=== PATIENT | female | born 1930 | race Caucasian/White ===

== ENCOUNTER 2019-04-13 10:24 | Inpatient (IN) | payer OTHER ==
[2019-04-13] MEDS ORDERED: morphine CARPU-JECT 4 MG/1 ML DISP.SYRIN IVPUSH ONE ×2 (11:15→13:36)
[2019-04-13] MEDS ORDERED: morphine SULFATE 4 MG/ML VIAL ONE (11:31)
--- NOTE | 2019-04-13 12:06 | PDOC ---
Documentation entered by Luke Peterson SCRIBE, acting as scribe for Flakito Askew MD. Flakito Askew MD: This documentation has been prepared by the Nicholas staley Nirvannie, SCRIBE, under my direction and personally reviewed by me in its entirety. I confirm that the documentation accurately reflects all work, treatment, procedures, and medical decision making performed by me. History of Present Illness - General Chief Complaint: Injury Stated Complaint: FALL Time Seen by Provider: 04/13/19 11:12 History Source: Patient, Family Exam Limitations: No Limitations - History of Present Illness Initial Comments: 04/13/19 11:34 The patient is an 88 year old female, with a significant past medical history of depression and hyperlipidemia, who presents to the emergency department s/p trip and fall. As per family at bedside, she was walking when she tripped over a bag on the floor, subsequently falling onto her left side hitting her left shoulder and left side of her head. She endorses significant pain to the left elbow with both passive and active movement. Denies ELIZONDO/N/V. Endorses some neck pain. She denies any LOC, lightheadedness, dizziness, nausea, or vomiting. She denies recent palpitations, chest pain, or shortness of breath. She denies recent dysuria, frequency, urgency or hematuria. Allergies: [facility] Primary Care Physician: Dr. Alyssa Cunningham Past History - Past Medical History Allergies/Adverse Reactions: Allergies Allergy/AdvReac Type Severity Reaction Status Date / Time No Known Allergies Allergy Verified 04/13/19 10:35 Home Medications: Ambulatory Orders Omeprazole [Prilosec] 40 mg PO DAILY 01/26/15 Quetiapine Fumarate [Seroquel -] 50 mg PO HS 01/26/15 Oxycodone HCl 5 mg PO TID PRN #15 tablet MDD 3 tabs 04/13/19 COPD: No Hypercholesterolemia: Yes Psychiatric Problems: Yes (DEPRESSION) - Psycho Social/Smoking Cessation Hx Smoking History: Never smoked Have you smoked in the past 12 months: No Information on smoking cessation initiated: No Hx Alcohol Use: No Drug/Substance Use Hx: No Substance Use Type: None Review of Systems - Review of Systems Able to Perform ROS?: Yes Comments:: 04/13/19 11:34 GENERAL/CONSTITUTIONAL: No fever or chills. No weakness. HEAD, EYES, EARS, NOSE AND THROAT: + pain and swelling above left eyebrow. No change in vision. No ear pain or discharge. No sore throat. CARDIOVASCULAR: No chest pain, no shortness of breath, no loss of consciousness RESPIRATORY: No cough, wheezing, or hemoptysis. GASTROINTESTINAL: No nausea, vomiting, diarrhea or constipation. GENITOURINARY: No dysuria, frequency, or change in urination. MUSCULOSKELETAL: +Right shoulder pain. No neck or back pain. SKIN: No rash NEUROLOGIC: No vertigo, no change in strength/sensation. ENDOCRINE: No increased thirst. No abnormal weight change. HEMATOLOGIC/LYMPHATIC: No anemia, easy bleeding, or history of blood clots. ALLERGIC/IMMUNOLOGIC: No hives or skin allergy. All Other Systems: Reviewed and Negative *Physical Exam - Vital Signs Last Vital Signs Temp Pulse Resp BP Pulse Ox 98.5 F 66 24 H 169/88 100 04/13/19 10:35 04/13/19 10:35 04/13/19 10:35 04/13/19 10:35 04/13/19 10:35 - Physical Exam Comments: 04/13/19 11:35 GENERAL: Awake, alert, and fully oriented, in no acute distress. HEAD: + abrasion to L eyebrow EYES: PERRLA, EOMI, sclera anicteric, conjunctiva clear ENT: Auricles normal inspection, hearing grossly normal, nares patent, oropharynx clear without exudates. Moist mucosa NECK: Nontender, no stepoffs, Normal ROM, supple, no lymphadenopathy, JVD, or masses LUNGS: Breath sounds equal, clear to auscultation bilaterally. No wheezes, and no crackles HEART: Regular rate and rhythm, normal S1 and S2, no murmurs, rubs or gallops ABDOMEN: Soft, nontender, normoactive bowel sounds. No guarding, no rebound. No masses EXTREMITIES: + L shoulder mild deformity, ROM limited 2/2 pain, distal pulses and sensation intact NEUROLOGICAL: Cranial nerves II through XII intact. 5/5 strength and sensation in all extremities, Normal speech, normal gait, normal cerebellar function SKIN: Warm, Dry, normal turgor, no rashes or lesions noted. Medical Decision Making - Medical Decision Making 04/13/19 12:09 88 F with L shoulder deformity and pain s/p mechanical fall. Possible fx/ dislocation. - CT head/c-spine - XR L shoulder - Pain control 04/13/19 13:08 CT head unremarkable XR shows Proximal L humerus fx, no dislocation Pt placed in sling Pending reads of CT c-spine/T-spine 04/13/19 13:30 CTs unremarkable Pt reassessed - still in severe pain after morphine and percocet Additional morphine ordered. Discussed with pt's family, who is concerned about pt's living situation. She lives in a 2 story walk up alone, will be unable to care for herself in this condition. 04/13/19 14:[address] Guerra Discharge - Discharge Information Problems reviewed: Yes Clinical Impression/Diagnosis: Fall, Head injury, Proximal humerus fracture - Admission Yes - Additional Discharge Information Prescriptions: Oxycodone HCl 5 mg PO TID PRN #15 tablet MDD 3 tabs PRN Reason: Pain - Follow up/Referral Referrals: Alyssa Cunningham MD [Primary Care Provider] - Freddie Patiño DO [Staff Physician] - - Patient Discharge Instructions Patient Printed Discharge Instructions: How to Use a Sling, DI for Closed Head Injury, DI for Humeral Fracture Additional Instructions: You have a broken arm (humeral fracture). Keep your arm in the sling at all times. You must follow up with an orthopedic surgeon within 48 hours for further evaluation and treatment. Call the number provided to make an appointment with Dr. Patiño. Take tylenol every 8 hours as needed for pain. For severe pain, take one oxycodone. Do not use more than prescribed. If you experience worsening pain, numbness or tingling in your arm, discoloration of your hand or arm, or any other concerning symptoms, return to the ER immediately. - Post Discharge Activity
[2019-04-13] MEDS ORDERED: MORPHINE SULFATE 2 MG/ML VIAL ONE (13:38)
--- NOTE | 2019-04-13 14:15 | HP ---
Admitting History and Physical - Smoking History Smoking history: Never smoked Have you smoked in the past 12 months: No - Alcohol/Substance Use Hx Alcohol Use: No Home Medications - Allergies Allergies/Adverse Reactions: Allergies Allergy/AdvReac Type Severity Reaction Status Date / Time No Known Allergies Allergy Verified 04/13/19 10:35 - Home Medications Home Medications: Ambulatory Orders Omeprazole [Prilosec] 40 mg PO DAILY 01/26/15 Quetiapine Fumarate [Seroquel -] 50 mg PO HS 01/26/15 Oxycodone HCl 5 mg PO TID PRN #15 tablet MDD 3 tabs 04/13/19 Physical Examination Vital Signs: Vital Signs Temperature 98.5 F 04/13/19 10:35 Pulse Rate 63 04/13/19 11:40 Respiratory Rate 20 04/13/19 11:40 Blood Pressure 177/56 H 04/13/19 11:40 O2 Sat by Pulse Oximetry (%) 100 04/13/19 11:40
[2019-04-13 14:25] LABS: BASO % 0.4 % (0-2.0); EOS % 0.2 % (0-4.5); LYMPH % 15.3 % (8-40); MCH 29.5 pg (25.7-33.7); MCHC 32.5 g/dl (32.0-36.0); MEAN CELL VOLUME 90.7 fl (80-96); MEAN PLT VOLUME 9.9 fl (7.5-11.1); MONO % 6.5 % (3.8-10.2); NEUT % 77.6 % (42.8-82.8); PLATELET COUNT 157 K/MM3 (134-434); RBC 4.08 M/mm3 (3.60-5.2); WHITE BLOOD COUNT 7.5 K/mm3 (4.0-10.0)
[2019-04-13 14:51] LABS: ALBUMIN 3.6 g/dl (3.4-5.0); BILIRUBIN,TOTAL 0.4 mg/dL (0.2-1); BLOOD UREA NITROGEN 12.3 mg/dL (7-18); CALCIUM 8.7 mg/dL (8.5-10.1); CREATININE 0.6 mg/dL (0.55-1.3); TOT PROT 6.6 g/dl (6.4-8.2)
[2019-04-13 17:08] VITALS: BMI 21.1
[2019-04-13] MEDS ORDERED: ACETAMINOPHEN 1000 MG/100 ML VIAL (NON FORMULARY) IVPB ONE (17:43)
[2019-04-13] MEDS ORDERED: LIDOCAINE 5% TOPICAL PATCH TP ONE (17:44)
--- NOTE | 2019-04-13 19:48 | CONSULT ---
Consult - text type - Consultation Consultation Note: ORTHOPEDIC SURGERY CONSULTATION NOTE Department of Orthopedic Surgery HISTORY OF PRESENT ILLNESS Christy Noland is an 88 year old female who was admitted to [facility] today after a mechanical fall at home. The orthopedic service was consulted for a left proximal humerus fracture. The injury occurred today. The patient notes pain to the left shoulder. Denies any other injuries. Denies numbness, tingling or other constitutional complaints. Denies tobacco use, drug use, alcohol abuse. The patient lives with family and uses no assistive devices at baseline. Active Problems Problem Status Category Onset Fall Acute Medical Head injury Acute Medical Proximal humerus fracture Acute Medical Social History Smoking history Never smoked Hx Alcohol Use No Allergies Allergy/AdvReac Type Severity Reaction Status Date / Time No Known Allergies Allergy Verified 04/13/19 10:35 Active Medications Generic Name Dose Route Start Last Admin Trade Name Freq PRN Reason Stop Dose Admin Amlodipine Besylate 5 mg 04/14/19 10:00 Norvasc - PO DAILY [facility] Miscellaneous 1 each 04/13/19 22:00 Lidoderm Patch Removal MC [id number] [facility] Vital Signs (last) Temp Pulse Resp BP Pulse Ox 97.8 F 72 20 130/72 97 04/13/19 16:58 04/13/19 16:58 04/13/19 17:14 04/13/19 16:58 04/13/19 17:14 Intake and Output 04/11/19 04/12/19 04/13/19 23:59 23:59 23:59 Other: Voiding Method Toilet Weight 108 lb Height 5 ft Body Mass Index (BMI) 21.1 Weight Measurement Method Built in [facility] Weight Measurement Method Est/Stated by Patient Laboratory 04/13/19 14:05 04/13/19 14:05 FAMILY HISTORY Reviewed and noncontributory. REVIEW OF SYMPTOMS A twelve-point review of systems was performed and was negative except as noted in HPI. PHYSICAL EXAM Constitutional: Alert and oriented to person, place, and time. Appears well- developed and well-nourished. No acute distress, appropriate mood and affect. Right Upper Extremity: No tenderness to palpation. Full passive and active ROM, free from pain. Left Upper Extremity: Skin warm, dry, and intact; ecchymosis of the left arm. Muscle mass equal and symmetric to contralateral side. No atrophy noted. Tender to palpation at proximal humerus; nontender throughout rest of extremity. Full passive and active ROM elbow, wrist and hand, free from pain. Joints stable with no pathologic laxity. M/R/U/MSK/AX motor intact; SILT distally; 2+ radial pulses; Cap refill brisk. Tone and reflexes normal. Right Lower Extremity: No tenderness to palpation. Full passive and active ROM, free from pain. Left Lower Extremity: No tenderness to palpation. Full passive and active ROM, free from pain. IMAGING I personally reviewed all radiographs, CT of the left shoulder. They demonstrate a minimally displaced left proximal humerus fracture involving the greater tuberosity. ASSESSMENT AND PLAN Christy Noland is an 88 year old female presenting status post mechanical fall with a left proximal humerus fracture involving the greater tuberosity. We have reviewed the imaging and clinical findings in detail, as well as their potential implications. - No surgical intervention recommended at this time. - Pain control: Transition to oral pain medications, minimize narcotic use - DVT prophylaxis - Ice/Sling - Elevate HOB, encourage oral intake - Appreciate medical management (Nutrition optimization, decubitus precautions heel/sacrum) - PT/OT; non weight bearing on fractured side All questions were answered. Thank you for involving our team in the care of this patient. Please have patient follow up in our office. The patient has a follow up appointment scheduled in my office on April at 9: 30 AM. Please have the patient call our office to confirm the appointment.
[2019-04-13] MEDS ORDERED: LIDOCAINE PATCH REMOVAL MC SCH (22:00)
[2019-04-14] MEDS: amLODIPine BESYLATE 5 MG TABLET (FP) PO SCH (09:44)
[2019-04-14] MEDS ORDERED: ACETAMINOPHEN 325 MG TABLET (FP) PO PRN ×2 (10:43→16:43)
[2019-04-14] MEDS ORDERED: oxyCODONE HCL 5 MG TABLET PO PRN (10:43)
--- NOTE | 2019-04-14 12:40 | EKG ---
Test Reason : Blood Pressure : / mmHG Vent. Rate : 064 BPM Atrial Rate : 064 BPM P-R Int : 190 ms QRS Dur : 068 ms QT Int : 416 ms P-R-T Axes : 027 023 059 degrees QTc Int : 429 ms NORMAL SINUS RHYTHM NORMAL ECG WHEN COMPARED WITH ECG OF 26-JAN-2015 09:48, NO SIGNIFICANT CHANGE WAS FOUND Confirmed by LANCE POOL MD ([id number]) on 04/14/2019 12:40:24 PM Referred By: Confirmed By:LANCE POOL MD
--- NOTE | 2019-04-14 13:51 | DS ---
Physical Examination Vital Signs: Vital Signs Temperature 99 F 04/14/19 06:48 Pulse Rate 84 04/14/19 10:00 Respiratory Rate 20 04/14/19 10:00 Blood Pressure 134/66 04/14/19 10:00 O2 Sat by Pulse Oximetry (%) 97 04/14/19 09:00 Labs: CBC, BMP 04/13/19 14:05 04/13/19 14:05 Discharge Summary Problems reviewed: Yes Reason For Visit: FRACTURE OF PROXIMAL END OF HUMERUS Current Active Problems Fall (Acute) Head injury (Acute) Proximal humerus fracture (Acute) - Instructions Referrals: Alyssa Cunningham MD [Primary Care Provider] - - Home Medications Comprehensive Discharge Medication List: Ambulatory Orders Amlodipine Besylate 5 mg PO DAILY 04/13/19
[2019-04-14] MEDS: ACETAMINOPHEN 325 MG TABLET (FP) PO PRN (18:28)
[2019-04-14] MEDS: oxyCODONE HCL 5 MG TABLET PO PRN (18:30)
[2019-04-15] MEDS: oxyCODONE HCL 5 MG TABLET PO PRN ×3 (04:39→22:59)
[2019-04-15] MEDS: ACETAMINOPHEN 325 MG TABLET (FP) PO PRN ×3 (04:40→22:59)
[2019-04-15] MEDS: amLODIPine BESYLATE 5 MG TABLET (FP) PO SCH (09:27)
--- NOTE | 2019-04-15 19:22 | PN ---
Progress Note, Physician History of Present Illness: Pt seen/ examined earlier today chart was reviewed awake/ comfortable - Current Medication List Current Medications: Active Medications Acetaminophen (Tylenol -) 325 mg PO Q8H PRN PRN Reason: PAIN 6-10 Last Admin: 04/15/19 14:09 Dose: 325 mg Amlodipine Besylate (Norvasc -) 5 mg PO DAILY FERNANDA Last Admin: 04/15/19 09:27 Dose: 5 mg Oxycodone HCl (Roxicodone -) 5 mg PO Q8H PRN PRN Reason: PAIN 6-10 Last Admin: 04/15/19 14:08 Dose: 5 mg - Objective Vital Signs: Vital Signs Temperature 99.6 F 04/15/19 17:29 Pulse Rate 93 H 04/15/19 17:29 Respiratory Rate 18 04/15/19 17:29 Blood Pressure 126/64 04/15/19 17:29 O2 Sat by Pulse Oximetry (%) 96 04/15/19 09:00 Constitutional: Yes: No Distress, Calm Eyes: Yes: Conjunctiva Clear Neck: Yes: Supple Cardiovascular: Yes: Regular Rate and Rhythm, Other Gastrointestinal: Yes: Soft Extremities: Yes: Other (left shouler tenderness) Edema: No Neurological: Yes: Alert Labs: CBC, BMP 04/13/19 14:05 04/13/19 14:05 Problem List - Problems (1) Fall Code(s): W19.XXXA - UNSPECIFIED FALL, INITIAL ENCOUNTER (2) Proximal humerus fracture Code(s): S42.209A - UNSP FRACTURE OF UPPER END OF UNSP HUMERUS, INIT FOR CLOS FX Assessment/Plan stable No surgery planned str - planned
[2019-04-16 09:06] VITALS: BP 136/61; PULSE 95
[2019-04-16 09:27] VITALS: TEMP 99.5
[2019-04-16] MEDS: amLODIPine BESYLATE 5 MG TABLET (FP) PO SCH (09:55)
[2019-04-16] MEDS: oxyCODONE HCL 5 MG TABLET PO PRN (09:55)
== END 2019-04-16 13:41 | DRG 563 ==
LOC: JER 10:24 → JERBED 13:55 → J8W 16:49
PROVIDERS: ADMIT Internal Medicine; ATTEND Internal Medicine
DX: S42.202A Unspecified fracture of upper end of left humerus, initial encounter for closed fracture (principal); F32.9 Major depressive disorder, single episode, unspecified; E78.5 Hyperlipidemia, unspecified; S09.90XA Unspecified injury of head, initial encounter; W19.XXXA Unspecified fall, initial encounter; Y93.9 Activity, unspecified; Y92.89 Other specified places as the place of occurrence of the external cause
CPT/HCPCS: 36415; 70450-TC; 70486-TC; 71045-TC-FY; 72125-TC; 72128-TC; 73030-TC-LT-FY; 80053; 85025; 93005; 93010; 97116-GP; 97162-GP; 99284-25; J0131